=== PATIENT | female | born 1995 | race Caucasian/White ===

== ENCOUNTER 2019-10-31 04:13 | Inpatient (IN) | payer OTHER, MEDICAID ==
[~2019-10-31] VITALS: Ht 160 cm; Wt 99.3 kg
[2019-10-31] MEDS ORDERED: ONDANSETRON HCL 4 MG/2 ML VIAL IV ONE (04:45)
[2019-10-31] MEDS ORDERED: MORPHINE SULFATE 4 MG/ML SYR/VIAL IV ONE (04:45)
[2019-10-31] MEDS ORDERED: SODIUM CHLORIDE 0.9% 1,000 ML IV ONE (04:45)
[2019-10-31 05:11] LABS: Basophils # (auto) 0.2 10 ^3/uL (0-0.2); Basophils % (auto) 1.2 % (0.0-2.0); Eosinophils # (auto) 0.4 10 ^3/uL (0-0.8); Eosinophils % (auto) 3.1 % (0.0-7.0); Hematocrit 39.1 % (36.0-46.0); Hemoglobin 12.9 g/dL (12.2-16.2); Lymphocytes # (auto) 3.5 10 ^3/uL (0.4-5.4); Lymphocytes % (auto) 28.3 % (10.0-50.0); Mean Corpuscular Hemoglobin 28.1 pg (28.0-32.0); Mean Corpuscular Hgb Conc. 32.9 g/dL (32.0-36.0); Mean Corpuscular Volume 85.4 fL (80.0-100.0); Monocytes # (auto) 0.9 10 ^3/uL (0-1.3); Monocytes % (auto) 7.3 % (0.0-12.0); Neutrophils # (auto) 7.5 10 ^3/uL (1.6-8.6); Neutrophils % (auto) 60.1 % (37.0-80.0); Nucleated Red Blood Cells % 0.1 %; Platelet Count (auto) 293 10^3/uL (140-450); Red Blood Cells 4.57 10^6/uL (4.0-5.20); Red Cell Distribution Width 13.8 % (11.8-14.3); White Blood Cell 12.4 10^3/uL (4.4-10.8)
[2019-10-31 05:35] LABS: Albumin 2.3 g/dL (3.4-5.0); BUN/Creatinine Ratio 29.6; Calcium 7.7 mg/dL (8.5-10.1); Potassium 3.8 mmol/L (3.5-5.1)
[2019-10-31 05:50] LABS: Bilirubin, Total 0.4 mg/dL (0.2-1.0); Total Protein 6.6 g/dL (6.4-8.2)
[2019-10-31] MEDS ORDERED: HYDROcodone-ACET 5/325MG TAB PO PRN (07:00)
[2019-10-31] MEDS ORDERED: ACETAMINOPHEN 325 MG TAB PO PRN (07:00)
[2019-10-31 07:39] LABS: Urine Bacteria NONE SEEN /hpf (None Seen); Urine Blood TRACE /uL (Negative); Urine Mucus FEW (None Seen); Urine Specific Gravity 1.023 (1.001-1.035); Urine WBC 2 /hpf (0 - 5)
[2019-10-31 09:00] VITALS: BP 106/51
[2019-10-31] MEDS ORDERED: NORGTAB59 (09:13)
[2019-10-31] MEDS ORDERED: PRED20TA2 (09:13)
[2019-10-31] MEDS: SODIUM CHLORIDE 0.9% 1,000 ML IV SCH ×5 (10:55→22:55)
[2019-10-31] MEDS: cefTRIAXone 1GM/50ML D5W 50 ML IV SCH (12:30)
[2019-10-31] MEDS: DOCUSATE SOD 100 MG CAP PO PRN (12:31)
[2019-10-31] MEDS: predniSONE 20 MG TAB PO SCH (12:31)
[2019-10-31 12:35] VITALS: BP 106/54
[2019-10-31 13:10] LABS: Phosphorus 4.3 mg/dL (2.5-4.90); Uric Acid 5.8 mg/dL (2.6-6.0)
[2019-10-31] MEDS: MORPHINE SULF INJ 2 MG/ML SYRINGE 1ML IV PRN ×3 (13:10→21:12)
[2019-10-31 14:02] LABS: Amphetamine Screen, Urine NEGATIVE (NEGATIVE); Barbiturate Scree,Urine NEGATIVE (NEGATIVE); Benzodiazephine Screen, Urine NEGATIVE (NEGATIVE); Cannabinoid Screen, Urine POSITIVE (NEGATIVE); Cocaine Screen, Urine NEGATIVE (NEGATIVE); Opiate Scree,Urine POSITIVE (NEGATIVE); Phencyclidine Screen, Urine NEGATIVE (NEGATIVE)
[2019-10-31 14:37] LABS: Hepatitis B Surface Antibody Positive
[2019-10-31 15:15] LABS: Hepatitis A Total Antibody Positive
[2019-10-31 15:41] LABS: Hepatitis B Core Total AB Negative; Hepatitis B Surface Antigen Negative (Negative); Hepatitis C Antibody Negative (Negative)
[2019-10-31 17:03] VITALS: BP 109/60
[2019-10-31] MEDS: PANTOPRAZOLE 40 MG TAB PO SCH (18:32)
[2019-10-31 22:00] VITALS: BP 130/61
[2019-11-01] MEDS: SODIUM CHLORIDE 0.9% 1,000 ML IV SCH ×6 (02:55→22:55)
[2019-11-01 05:00] VITALS: BP 126/59
[2019-11-01 05:14] LABS: Basophils # (auto) 0.1 10 ^3/uL (0-0.2); Basophils % (auto) 0.9 % (0.0-2.0); Eosinophils # (auto) 0.1 10 ^3/uL (0-0.8); Eosinophils % (auto) 0.5 % (0.0-7.0); Hematocrit 37.8 % (36.0-46.0); Hemoglobin 12.2 g/dL (12.2-16.2); Lymphocytes # (auto) 2.6 10 ^3/uL (0.4-5.4); Lymphocytes % (auto) 18.2 % (10.0-50.0); Mean Corpuscular Hemoglobin 27.9 pg (28.0-32.0); Mean Corpuscular Hgb Conc. 32.4 g/dL (32.0-36.0); Monocytes # (auto) 1.1 10 ^3/uL (0-1.3); Monocytes % (auto) 7.9 % (0.0-12.0); Neutrophils # (auto) 10.3 10 ^3/uL (1.6-8.6); Neutrophils % (auto) 72.5 % (37.0-80.0); Nucleated Red Blood Cells % 0.1 %; Platelet Count (auto) 284 10^3/uL (140-450); Red Blood Cells 4.39 10^6/uL (4.0-5.20); Red Cell Distribution Width 13.9 % (11.8-14.3); White Blood Cell 14.2 10^3/uL (4.4-10.8)
[2019-11-01 08:41] VITALS: BP 118/62
[2019-11-01] MEDS: cefTRIAXone 1GM/50ML D5W 50 ML IV SCH (09:18)
[2019-11-01] MEDS: predniSONE 20 MG TAB PO SCH (09:18)
[2019-11-01] MEDS: DOCUSATE SOD 100 MG CAP PO PRN (09:18)
[2019-11-01 12:52] VITALS: BP 112/54
[2019-11-01] MEDS: ONDANSETRON HCL 4 MG/2 ML VIAL IV PRN ×2 (13:30→21:01)
[2019-11-01] MEDS: MORPHINE SULF INJ 2 MG/ML SYRINGE 1ML IV PRN ×2 (13:30→21:01)
[2019-11-01] MEDS: PANTOPRAZOLE 40 MG TAB PO SCH (15:00)
[2019-11-01 17:08] VITALS: BP 114/65
[2019-11-01 21:00] VITALS: BP 127/58
[2019-11-01 22:00] VITALS: BP 127/58
[2019-11-02] MEDS: MORPHINE SULF INJ 2 MG/ML SYRINGE 1ML IV PRN (02:20)
[2019-11-02] MEDS: SODIUM CHLORIDE 0.9% 1,000 ML IV SCH ×4 (02:58→14:55)
[2019-11-02 05:00] VITALS: BP 111/66
[2019-11-02 05:55] LABS: Basophils # (auto) 0.1 10 ^3/uL (0-0.2); Basophils % (auto) 0.3 % (0.0-2.0); Eosinophils # (auto) 0.1 10 ^3/uL (0-0.8); Eosinophils % (auto) 0.9 % (0.0-7.0); Hemoglobin 11.2 g/dL (12.2-16.2); Lymphocytes # (auto) 3.8 10 ^3/uL (0.4-5.4); Lymphocytes % (auto) 23.8 % (10.0-50.0); Mean Corpuscular Hemoglobin 28.2 pg (28.0-32.0); Mean Corpuscular Hgb Conc. 32.8 g/dL (32.0-36.0); Mean Corpuscular Volume 86.1 fL (80.0-100.0); Monocytes # (auto) 1.5 10 ^3/uL (0-1.3); Monocytes % (auto) 9.5 % (0.0-12.0); Neutrophils # (auto) 10.5 10 ^3/uL (1.6-8.6); Neutrophils % (auto) 65.5 % (37.0-80.0); Platelet Count (auto) 286 10^3/uL (140-450); Red Blood Cells 3.95 10^6/uL (4.0-5.20); Red Cell Distribution Width 14.5 % (11.8-14.3)
[2019-11-02 06:21] LABS: Potassium 3.6 mmol/L (3.5-5.1)
[2019-11-02 06:23] LABS: BUN/Creatinine Ratio 19.1; Bilirubin, Total 0.3 mg/dL (0.2-1.0); Total Protein 5.9 g/dL (6.4-8.2)
[2019-11-02 08:19] VITALS: BP 122/69
[2019-11-02] MEDS: predniSONE 20 MG TAB PO SCH (09:02)
[2019-11-02] MEDS: cefTRIAXone 1GM/50ML D5W 50 ML IV SCH (09:02)
[2019-11-02] MEDS: PANTOPRAZOLE 40 MG TAB PO SCH (09:02)
[2019-11-02 13:05] VITALS: BP 126/71
== END 2019-11-02 15:30 | disposition home or self-care (01) | DRG 558 ==
LOC: ER 04:13 → OVERFLOW 04:14 → WEST WING 09:00
PROVIDERS: ADMIT Hospitalist; ATTEND Family Medicine
DX: M62.82 Rhabdomyolysis (principal); K72.90 Hepatic failure, unspecified without coma; E88.09 Other disorders of plasma-protein metabolism, not elsewhere classified; R79.89 Other specified abnormal findings of blood chemistry; E86.9 Volume depletion, unspecified; Z83.3 Family history of diabetes mellitus; M60.9 Myositis, unspecified
CPT/HCPCS: 36415; 76705; 78226; 80053; 80307; 81001; 82550; 82570; 83520; 84100; 84156; 84550; 84702; 85025; 86038; 86160; 86225; 86256; 86704; 86706; 86708; 86803; 87040; 87340; G0378; J0696; J2405

== ENCOUNTER → 2020-01-17 | Emergency (ER) | payer MEDICAID, OTHER ==
[~2020-01-17] VITALS: Ht 160 cm; Wt 96.6 kg
[~2020-01-17] MED LIST: DexAMETHasone SOD PHOS 10MG/1ML VIAL INJ IV ONE; NORGTAB59; PRED20TA2; SODIUM CHLORIDE 0.9% 1,000 ML IV ONE; cefTRIAXone 1GM/50ML D5W 50 ML IV ONE
[2020-01-17 09:51] LABS: Urine Bacteria FEW /hpf (None Seen); Urine Blood Negative /uL (Negative); Urine Mucus FEW (None Seen); Urine Specific Gravity 1.023 (1.001-1.035); Urine WBC 7 /hpf (0 - 5)
[2020-01-17 10:02] LABS: Alcohol, Urine < 3.0 mg/dL (0-10); Amphetamine Screen, Urine NEGATIVE (NEGATIVE); Barbiturate Scree,Urine NEGATIVE (NEGATIVE); Benzodiazephine Screen, Urine NEGATIVE (NEGATIVE); Cannabinoid Screen, Urine POSITIVE (NEGATIVE); Cocaine Screen, Urine NEGATIVE (NEGATIVE); Opiate Scree,Urine NEGATIVE (NEGATIVE); Phencyclidine Screen, Urine NEGATIVE (NEGATIVE)
[2020-01-17 10:04] LABS: Basophils # (auto) 0.1 10 ^3/uL (0-0.2); Basophils % (auto) 0.5 % (0.0-2.0); Eosinophils # (auto) 0.1 10 ^3/uL (0-0.8); Eosinophils % (auto) 0.5 % (0.0-7.0); Hematocrit 41.2 % (36.0-46.0); Hemoglobin 13.2 g/dL (12.2-16.2); Lymphocytes % (auto) 18.3 % (10.0-50.0); Mean Corpuscular Hemoglobin 27.5 pg (28.0-32.0); Monocytes # (auto) 1.1 10 ^3/uL (0-1.3); Monocytes % (auto) 6.7 % (0.0-12.0); Platelet Count (auto) 362 10^3/uL (140-450); Red Blood Cells 4.79 10^6/uL (4.0-5.20); Red Cell Distribution Width 15.7 % (11.8-14.3); White Blood Cell 16.2 10^3/uL (4.4-10.8)
[2020-01-17 10:22] LABS: Calcium 8.3 mg/dL (8.5-10.1)
[2020-01-17 10:25] LABS: BUN/Creatinine Ratio 20.7
[2020-01-17 10:26] LABS: Bilirubin, Total 0.5 mg/dL (0.2-1.0); Total Protein 7.8 g/dL (6.4-8.2)
[2020-01-17 10:32] LABS: Beta HCG, Quantitative < 1 mlU/mL (1-3); Thyroid Stimulating Hormone 0.99 uIU/mL (0.358-3.74)
[2020-01-17 14:11] VITALS: BP 104/54
== END | disposition home or self-care (01) ==
LOC: ER 08:55
DX: M32.9 Systemic lupus erythematosus, unspecified (principal); M35.3 Polymyalgia rheumatica; E44.0 Moderate protein-calorie malnutrition; N39.0 Urinary tract infection, site not specified; F12.90 Cannabis use, unspecified, uncomplicated; Z79.899 Other long term (current) drug therapy; Z68.37 Body mass index [BMI] 37.0-37.9, adult
CPT/HCPCS: 36415; 80053; 80307; 81001; 82550; 83735; 84443; 84702; 85025; 96361; 96365; 96375; 99285; J0696; J1100